=== PATIENT | male | born 1975 | race Caucasian/White ===

== ENCOUNTER 2017-08-10 19:12 | Emergency (ER) | payer MEDICAID ==
[~2017-08-10] VITALS: Ht 190.5 cm; Wt 113.4 kg
--- NOTE | 2017-08-10 19:25 | NUR ---
[facility]; COUGH/ CONGESTION X 1 WK. PATIENT IS AFEBRILE, VSS
[2017-08-10 21:16] VITALS: BP 140/91
--- NOTE | 2017-08-10 21:18 | NUR ---
Patient discharged to home in stable condition. Written and verbal after care instructions given. Patient verbalizes understanding of instruction.IV removed. Catheter intact and site benign. Pressure and 4x4 applied to site. No bleeding noted. PT ambulatory with a steady gait
== END 2017-08-10 21:17 | disposition home or self-care (01) ==
LOC: ER 19:15
DX: J18.9 Pneumonia, unspecified organism (principal)
CPT/HCPCS: 71010; 99283; A4606; A6410; Z7610

== ENCOUNTER 2017-08-21 16:52 | Emergency (ER) | payer MEDICAID ==
--- NOTE | 2017-08-21 17:13 | NUR ---
Patient eloped from facility. ER MD notified.
== END 2017-08-21 17:14 | disposition home or self-care (01) ==
LOC: ER 16:57
DX: Z53.21 Procedure and treatment not carried out due to patient leaving prior to being seen by health care provider (principal)